=== PATIENT | female | born 1985 | race Caucasian/White ===

== ENCOUNTER 2018-12-20 10:44 | Outpatient (RCR) | payer BC ==
[~2018-12-20 10:44] MED LIST: EQUALINE PRENATAL; HEPARIN SOD5000 U/M1 SQ; LOVENOX 4040 MG/0.4 SQ; MOTRIN 600600 MG/TAB PO; PERCOCET 325 MG1 TA2
== END 2019-03-20 | disposition home or self-care (01) ==
LOC: WSC
DX: R42 Dizziness and giddiness (principal)

== ENCOUNTER → 2020-03-21 | Outpatient (CLI) | payer BC | LOC: COL.LAB 07:30 → ZCOL.LAB 07:30 | DX: Z20.828 Contact with and (suspected) exposure to other viral communicable diseases (principal) ==

== ENCOUNTER → 2020-06-11 | Outpatient (CLI) | payer BC | LOC: COL.RAD 15:39 | DX: D68.51 Activated protein C resistance (principal); R06.02 Shortness of breath | CPT/HCPCS: Q9967 ==

== ENCOUNTER → 2020-06-13 | Outpatient (REF) | payer BC | END | disposition still patient (30) | LOC: COL.LAB 04:51 | DX: Z01.89 Encounter for other specified special examinations (principal) ==

== ENCOUNTER → 2020-08-23 | Outpatient (CLI) | payer BC | LOC: COL.PUL 08-17 11:30 | DX: R06.02 Shortness of breath (principal) ==

== ENCOUNTER → 2020-08-29 | Outpatient (CLI) | payer BC | LOC: COL.VAS 14:13 | DX: R06.02 Shortness of breath (principal) ==

== ENCOUNTER → 2021-05-14 | Outpatient (CLI) | payer BC | LOC: COL.RAD 09:28 | DX: M46.1 Sacroiliitis, not elsewhere classified (principal); M53.3 Sacrococcygeal disorders, not elsewhere classified; M47.816 Spondylosis without myelopathy or radiculopathy, lumbar region; M47.817 Spondylosis without myelopathy or radiculopathy, lumbosacral region ==

== ENCOUNTER → 2021-10-01 | Outpatient (CLI) | payer BC | LOC: MHCPAIN 13:37 | DX: M53.3 Sacrococcygeal disorders, not elsewhere classified (principal); M47.897 Other spondylosis, lumbosacral region; M79.18 Myalgia, other site | CPT/HCPCS: G0463 ==

== ENCOUNTER → 2021-10-14 | Outpatient (CLI) | payer BC | LOC: MHCPAIN 14:17 | DX: M47.817 Spondylosis without myelopathy or radiculopathy, lumbosacral region (principal); M53.3 Sacrococcygeal disorders, not elsewhere classified | CPT/HCPCS: G0260; J1040; Q9967 ==

== ENCOUNTER → 2021-12-11 | Outpatient (CLI) | payer BC | LOC: MHCPAIN 10:35 | DX: M47.817 Spondylosis without myelopathy or radiculopathy, lumbosacral region (principal); M53.3 Sacrococcygeal disorders, not elsewhere classified; M54.50 Low back pain, unspecified; M79.18 Myalgia, other site; G89.29 Other chronic pain | CPT/HCPCS: G0463 ==

== ENCOUNTER → 2022-05-06 | Outpatient (CLI) | payer BC | LOC: COL.RAD 08:07 | DX: R79.89 Other specified abnormal findings of blood chemistry (principal) ==